=== PATIENT | female | born 1980 | race Caucasian/White ===

== ENCOUNTER 2020-06-29 10:44 | Emergency (ER) | payer OTHER, SELFPAY ==
[2013-05-01 10:01] VITALS: BP 144/70
== END 2020-06-29 11:15 | disposition left against medical advice (07) ==
LOC: ED 10:44
DX: Z53.21 Procedure and treatment not carried out due to patient leaving prior to being seen by health care provider (principal)
CPT/HCPCS: 99281

== ENCOUNTER 2024-12-06 19:22 | Emergency (ER) | payer OTHER ==
[2024-12-06 19:40] VITALS: TEMP 97.9
--- NOTE | 2024-12-06 20:02 | ERPHSYRPT ---
- History of Present Illness Time Seen by Provider: 12/06/24 19:26 Historian: patient, EMS Exam Limitations: no limitations Patient Subjective Stated Complaint: c/o chest pain Triage Nursing Assessment: patient brought into ED by ambulance with c/o chest pain that started an hour ago at work. patient says she has been dealing with a lot of stress. No past medical history, patient took 4 baby aspirin and 4mg of zofran per EMS. denies vomiting, but states she is nauseous. patient states pain is a 6/10 squeezing pain that radiates into her left shoulder. When pain started she felt dizzy, her left arm felt tired, and she got very hot. vitals wnl, skin w/n/d, pulses normal, s1 ans s2 heard, patient foesn't appear to be in any distress at this time. Physician History: 44 years old fairly healthy female history of tobacco use/asthma presented in the ER with chief complaint of chest pain substernal with some radiation to the left shoulder and feeling of mild heaviness in the left arm. Patient reports this as a squeezing sensation 6/10 intensity with associated palpitations and some shortness of breath. Patient reported started almost an hour ago while she was at work and also feeling dizzy/lightheaded. Reports partial relief with taking aspirin and Zofran and route to the ER by EMS. Patient denies any history of coronary artery disease or chest pains in the past. No leg swelling, no history of DVT/PEs. Reports going through a lot of stress lately specially family related issues. Aspirin Treatment Today: 81 mg x 4 Allergies/Adverse Reactions: acetaminophen [From Darvocet-N 100] Adverse Reaction (Mild, Verified 12/06/24 19:29) Vomiting propoxyphene napsylate [From Darvocet-N 100] Adverse Reaction (Mild, Verified 12/06/24 19:29) Vomiting Home Medications: No Reportable Medications [No Reported Medications] 12/06/24 [History] Hx Tetanus, Diphtheria Vaccination/Date Given: Yes Hx Influenza Vaccination/Date Given: No Hx Pneumococcal Vaccination/Date Given: No Travel Risk - International Travel Have you traveled outside of the country in past 3 weeks: No - Emerging Infectious Disease Are you exhibiting symptoms associated with any current EIDs: No - Review of Systems Constitutional: No Symptoms Eyes: No Symptoms Ears, Nose, & Throat: No Symptoms Respiratory: Dyspnea Cardiac: Chest Pain Abdominal/Gastrointestinal: No Symptoms Genitourinary Symptoms: No Symptoms Skin: No Symptoms Neurological: Dizziness Psychological: Anxiety Endocrine: No Symptoms Hematologic/Lymphatic: No Symptoms Immunological/Allergic: No Symptoms - Past Medical History Pertinent Past Medical History: Yes Neurological History: No Pertinent History ENT History: No Pertinent History Cardiac History: No Pertinent History Respiratory History: No Pertinent History Endocrine Medical History: No Pertinent History Musculoskeletal History: No Pertinent History GI Medical History: Gallbladder Disease History: No Pertinent History Psycho-Social History: No Pertinent History Female Reproductive Disorders: No Pertinent History Other Medical History: no medical hx - Past Surgical History Past Surgical History: Yes Neuro Surgical History: No Pertinent History Cardiac: No Pertinent History Respiratory: No Pertinent History Gastrointestinal: Cholecystectomy Genitourinary: No Pertinent History Musculoskeletal: No Pertinent History Female Surgical History: Tubal Ligation Other Surgical History: childbirth x 5, - Female History Hx Last Menstrual Period: now Hx Now: No - Social History Smoking Status: Current every day smoker Exposure to second hand smoke: No Drug Use: marijuana - Social Determinants of Health Will the patient participate in the screening: Yes Do you worry about a steady place to live?: No Do you have any problems with any of the following?: No known problems In the past 12 months,have you had to go without utilities?: No Transportation Issues: No Has anyone in your support network made you feel unsafe?: No Have you or anyone in your house had to go w/o enough food: No - Nursing Vital Signs Nursing Vital Signs: Initial Vital Signs Temperature 97.9 F 12/06/24 19:30 Pulse Rate 89 12/06/24 19:30 Respiratory Rate 22 12/06/24 19:30 Blood Pressure 135/87 12/06/24 19:30 O2 Sat by Pulse Oximetry 98 12/06/24 19:30 Pain Scale Pain Intensity 6 - Physical Exam General Appearance: no apparent distress, alert, anxiety Eye Exam: PERRL/EOMI Ears, Nose, Throat Exam: normal ENT inspection Neck Exam: normal inspection, non-tender, supple, full range of motion Respiratory Exam: normal breath sounds, lungs clear Cardiovascular Exam: regular rate/rhythm, normal heart sounds Gastrointestinal/Abdomen Exam: soft, normal bowel sounds, No tenderness Back Exam: normal inspection, normal range of motion Extremity Exam: normal inspection, normal range of motion Neurologic Exam: alert, oriented x 3, cooperative, manager access II-XII nml as tested, nml cerebellar function, nml station & gait, sensation nml, No normal mood/affect, No motor deficits Skin Exam: normal color SpO2 Interpretation: normal SpO2: 98 O2 Delivery: Room Air - Course EKG Interpreted by Me: RATE (80), Sinus Rhythm, NORMAL AXIS, NORMAL INTERVALS, NORMAL QRS Ordered Tests: Active Orders 24 hr Category Date Time Status Orthotist Prosthetist STAT Care 12/06/24 19:59 Active EKG-ER Only STAT Care 12/06/24 19:58 Active IV Insertion STAT Care 12/06/24 19:58 Active CHEST 1 VIEW (PORTABLE) Stat Exams 12/06/24 20:55 Completed CBC W DIFF Stat Lab 12/06/24 20:10 Completed CMP Stat Lab 12/06/24 20:10 Completed D-DIMER QUANTITATIVE Stat Lab 12/06/24 20:10 Completed HCG QUALITATIVE, SERUM Stat Lab 12/06/24 20:10 Completed TROPONIN Q4H Lab 12/06/24 20:10 Completed TROPONIN Q4H Lab 12/06/24 22:52 Completed TROPONIN Q4H Lab 12/07/24 00:00 Ordered TROPONIN Q4H Lab 12/07/24 04:00 Ordered Respiratory Therapy Assessment DAILY RT 12/06/24 20:19 Active Medication Summary Discontinued Medications Generic Name Dose Route Start Last Admin Trade Name Freq PRN Reason Stop Dose Admin Albuterol/Ipratropium 3 ml 12/06/24 19:59 12/06/24 20:20 Ipratropium/Albuterol Sulfate 3 Ml Ampul.Neb IH 12/06/24 20:00 3 ml STAT ONE Administration Albuterol/Ipratropium Confirm 12/06/24 20:07 Ipratropium/Albuterol Sulfate 3 Ml Ampul.Neb Administered 12/06/24 20:08 Dose 3 ml IH .STK-MED ONE Lab/Rad Data: Laboratory Result Diagrams 12/06/24 20:10 12/06/24 20:10 Laboratory Results 12/06/24 12/06/24 12/06/24 Range/Units 22:52 20:10 20:10 WBC (3.98-10.04) x10^3/uL RBC (3.93-5.22) x10^6/uL Hgb (11.2-15.7) g/dL Hct (34.1-44.9) % MCV (79.4-94.8) fL MCH (25.6-32.2) pg MCHC (32.2-35.5) g/dL RDW (11.7-14.4) % Plt Count (182-369) x10^3/uL MPV (9.4-12.3) fL Gran % (34.0-71.1) % Immature Gran % (Auto) (0.001-0.429) % Nucleat RBC Rel Count (0.00-0.2) % Eos # (Auto) (0.04-0.36) x10^3/uL Immature Gran # (Auto) (0.001-0.031) x10^3u/L Absolute Lymphs (auto) (1.18-3.74) x10^3/uL Absolute Monos (auto) (0.24-0.86) x10^3/uL Absolute Nucleated RBC (0.00-0.012) x10^3u/L Lymphocytes % (19.3-51.7) % Monocytes % (4.7-12.5) % Eosinophils % (0.7-5.8) % Basophils % (0.1-1.2) % Absolute Granulocytes (1.56-6.13) x10^3/uL Basophils # (0.01-0.08) x10^3/uL D-Dimer (0.0-0.50) mg/L Sodium (135-145) mmol/L Potassium (3.5-5.1) mmol/L Chloride (98-107) mmol/L Carbon Dioxide (22-30) mmol/L Anion Gap (5-15) MEQ/L BUN (7-17) mg/dL Creatinine (0.52-1.04) mg/dL Estimated GFR ML/MIN Glucose (74-106) mg/dL Calcium (8.4-10.2) mg/dL Total Bilirubin (0.2-1.3) mg/dL AST (14-36) U/L ALT (0-35) U/L Alkaline Phosphatase (38-126) U/L Troponin I < 0.012 < 0.012 (0.000-0.033) ng/mL Serum Total Protein (6.3-8.2) g/dL Albumin (3.5-5.0) g/dL Serum HCG, Qual NEGATIVE (NEGATIVE) 12/06/24 12/06/24 12/06/24 Range/Units 20:10 20:10 20:10 WBC 5.0 (3.98-10.04) x10^3/uL RBC 3.81 L (3.93-5.22) x10^6/uL Hgb 12.2 (11.2-15.7) g/dL Hct 35.3 (34.1-44.9) % MCV 92.7 (79.4-94.8) fL MCH 32.0 (25.6-32.2) pg MCHC 34.6 (32.2-35.5) g/dL RDW 13.0 (11.7-14.4) % Plt Count 279 (182-369) x10^3/uL MPV 9.3 L (9.4-12.3) fL Gran % 59.0 (34.0-71.1) % Immature Gran % (Auto) 0.2 (0.001-0.429) % Nucleat RBC Rel Count 0.0 (0.00-0.2) % Eos # (Auto) 0.16 (0.04-0.36) x10^3/uL Immature Gran # (Auto) 0.01 (0.001-0.031) x10^3u/L Absolute Lymphs (auto) 1.34 (1.18-3.74) x10^3/uL Absolute Monos (auto) 0.48 (0.24-0.86) x10^3/uL Absolute Nucleated RBC 0.00 (0.00-0.012) x10^3u/L Lymphocytes % 26.8 (19.3-51.7) % Monocytes % 9.6 (4.7-12.5) % Eosinophils % 3.2 (0.7-5.8) % Basophils % 1.2 (0.1-1.2) % Absolute Granulocytes 2.95 (1.56-6.13) x10^3/uL Basophils # 0.06 (0.01-0.08) x10^3/uL D-Dimer 0.28 (0.0-0.50) mg/L Sodium 139 (135-145) mmol/L Potassium 3.9 (3.5-5.1) mmol/L Chloride 108 H (98-107) mmol/L Carbon Dioxide 22 (22-30) mmol/L Anion Gap 13.7 (5-15) MEQ/L BUN 14 (7-17) mg/dL Creatinine 0.70 (0.52-1.04) mg/dL Estimated GFR 110.0 ML/MIN Glucose 91 (74-106) mg/dL Calcium 8.8 (8.4-10.2) mg/dL Total Bilirubin 0.40 (0.2-1.3) mg/dL AST 40 H (14-36) U/L ALT 49 H (0-35) U/L Alkaline Phosphatase 86 (38-126) U/L Troponin I (0.000-0.033) ng/mL Serum Total Protein 6.9 (6.3-8.2) g/dL Albumin 4.2 (3.5-5.0) g/dL Serum HCG, Qual (NEGATIVE) - Progress Progress: improved, re-examined Air Movement: good Progress Note: 12/06/24 23:23 44 years old is evaluated in the ER for substernal chest pain with some tightness and feeling dizzy lightheaded. EKG is no acute ischemic changes. Patient was very anxious and has a lot of stress lately. Broad workup is done with negative troponins x 2, normal white count, unremarkable chemistries and negative D-dimers. Chest x-ray is negative for any acute cardiopulmonary findings. She is givenDuoNeb, feeling better on reevaluation. I believe patient's symptoms are not very typical of cardiac, and 2 negative troponins, do not think patient needs further workup in the ER or needs to be admitted, she is advised to have outpatient follow-up. Counseled on smoking cessation. Discussed signs symptoms of worsening needing return to ER which she seems understanding. Stable for discharge. 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 - Diagnostic Testing Diagnostic test were ordered, analyzed, and reviewed by me: Yes Radiological Interpretation: Interpreted by me, Reviewed by me - Risk of complications The pt has a mod risk of morbidity or mortality based on: Need for prescription drug management - Departure Departure Disposition: Home Clinical Impression: Atypical chest pain, Anxiety Condition: Stable Critical Care Time: No Referrals: DOCTOR,NO FAMILY [Primary Care Provider, UNKNOWN] - Follow up/PCP as directed CATIE KEYS [CONSULTING PHYSICIAN, CARDIOLOGY] - Follow up/PCP as directed Referral Note: Call for appointment for reevaluation Instructions: Atypical Chest Pain, Anxiety in adults - ED discharge instructions Additional Instructions: Take Tylenol as needed. Do not smoke. Follow-up with primary care and cardiology for reevaluation. Return to ER for worsening chest pain or if having difficulty breathing/palpitations etc.
[2024-12-06] MEDS ORDERED: DUONEB 0.5-3 MG/3 ml Neb IH ONE (20:07)
[2024-12-06 20:17] LABS: Absolute Neutrophil Ct (ANC) 2.95 x10^3/uL (1.56-6.13); BASOPHIL % 1.2 % (0.1-1.2); Basophil (Absolute #) 0.06 x10^3/uL (0.01-0.08); Eosinophil % 3.2 % (0.7-5.8); Eosinophil (Absolute #) 0.16 x10^3/uL (0.04-0.36); Hematocrit 35.3 % (34.1-44.9); Hemoglobin 12.2 g/dL (11.2-15.7); IMMATURE GRAN # 0.01 x10^3u/L (0.001-0.031); IMMATURE GRAN % 0.2 % (0.001-0.429); Lymphocyte (Absolute #) 1.34 x10^3/uL (1.18-3.74); Lymphocytes % 26.8 % (19.3-51.7); Mean Cell Volume 92.7 fL (79.4-94.8); Mean Corpuscular Hgb Concent. 34.6 g/dL (32.2-35.5); Mean Platelet Volume 9.3 fL (9.4-12.3); Monocyte (Absolute #) 0.48 x10^3/uL (0.24-0.86); Monocytes % 9.6 % (4.7-12.5); Platelet Count 279 x10^3/uL (182-369); Red Blood Count 3.81 x10^6/uL (3.93-5.22)
[2024-12-06] MEDS: DUONEB 0.5-3 MG/3 ml Neb IH ONE (20:20)
[2024-12-06 20:34] LABS: HCG SERUM TEST NEGATIVE (NEGATIVE)
[2024-12-06 20:36] LABS: ALBUMIN 4.2 g/dL (3.5-5.0); ANION GAP 13.7 MEQ/L (5-15); BILIRUBIN,TOTAL 0.4 mg/dL (0.2-1.3); Calcium 8.8 mg/dL (8.4-10.2); Creatinine 1 0.7 mg/dL (0.52-1.04); Potassium 3.9 mmol/L (3.5-5.1); Total Protein 6.9 g/dL (6.3-8.2)
[2024-12-06 21:06] VITALS: O2SAT 98
--- NOTE | 2024-12-06 21:51 | XRAY ---
Indication: Chest pain. Comparison: December 14, 2013 Portable chest again inflated and clear. Heart not enlarged. Bony thorax intact. No new/acute findings.
[2024-12-06 23:05] VITALS: BP 117/66
[2024-12-06 23:55] VITALS: PULSE 82; RESP 20
== END 2024-12-06 23:55 | disposition home or self-care (01) ==
LOC: ED 19:22
DX: R07.89 Other chest pain (principal); F41.9 Anxiety disorder, unspecified; R00.2 Palpitations; R42 Dizziness and giddiness; Z72.0 Tobacco use
CPT/HCPCS: 36415; 71045; 80053; 84484; 84703; 85025; 85379; 93005; 93041; 94640; 99284; 99285; A9270-GY